=== PATIENT | female | born 1955 | race African-American/Black ===

== ENCOUNTER 2016-03-18 00:25 | Emergency (ER) | payer SELFPAY ==
[2016-03-18] MEDS ORDERED: METOCLOPRAMIDE HCL INJ/PF 10 MG/2 ML SDV IV ONE (01:43)
[2016-03-18] MEDS ORDERED: DIPHENHYDRAMINE HCL 50 MG/ML VIAL IV ONE (01:43)
[2016-03-18 02:12] LABS: ABSOLUTE BASOPHILS # (AUTO) 0.1 10^3/uL (0.0-0.2); ABSOLUTE EOSINOPHILS # (AUTO) 0.3 10^3/uL (0.0-0.6); ABSOLUTE MONOCYTES (AUTO) 0.5 10^3/uL (0.1-1.4); ABSOLUTE NEUT (AUTO) 3.1 10^3/uL (1.7-8.2); BASOPHILS % (AUTO) 0.9 % (0-2); EOSINOPHILS % (AUTO) 5.1 % (0-6); HEMATOCRIT 39.4 % (36.0-47.0); HEMOGLOBIN 13.4 g/dL (12.0-15.5); HGB HCT DIFFERENCE 0.8; LYMPHOCYTES % (AUTO) 34.1 % (13-45); MEAN CORPUSCULAR HEMOGLOBIN 31.9 pg (27.0-33.4); MEAN CORPUSCULAR HGB CONC 34.1 g/dL (32.0-36.0); MEAN CORPUSCULAR VOLUME 94 fl (80-97); MONOCYTES % (AUTO) 7.9 % (3-13); RED CELL DISTRIBUTION WIDTH 13.3 % (11.5-14.0)
[2016-03-18 02:31] LABS: ALANINE AMINOTRANSFERASE 14 U/L (9-52); ALBUMIN 3.5 g/dL (3.5-5.0); ALKALINE PHOSPHATASE 56 U/L (38-126); ANION GAP 7 (5-19); ASPARTATE AMINO TRANSFERASE 15 U/L (14-36); BILIRUBIN,TOTAL 0.4 mg/dL (0.2-1.3); BLOOD UREA NITROGEN 18 mg/dL (7-20); CALCIUM 8.9 mg/dL (8.4-10.2); CARBON DIOXIDE 32 mmol/L (22-30); CHLORIDE 101 mmol/L (98-107); CREATININE RESULT 0.99 mg/dL (0.52-1.25); GLUCOSE 100 mg/dL (75-110); POTASSIUM 4.1 mmol/L (3.6-5.0); SODIUM 140.2 mmol/L (137-145); TOTAL PROTEIN 6.4 g/dL (6.3-8.2)
[2016-03-18 02:58] LABS: ERYTHROCYTE SEDIMENTATION RATE 14 mm/hr (0-30)
[2016-03-18] MEDS ORDERED: KETOROLAC TROMETHAMINE INJ/PF 30 MG/1 ML SDV IV ONE (03:48)
--- NOTE | 2016-03-18 03:48 | ER Document Report ---
ED General - General Chief Complaint: Headache >24 hrs old Stated Complaint: HEADACHE, RIGHT EYE PAIN Time seen by provider: 03:46 Mode of Arrival: Ambulatory Information source: Patient Notes: This is a 60-year-old female with a history of hypertension that presents to the emergency room with a throbbing right-sided headache. Patient denies fever , chills, nausea vomiting. Patient denies weakness in the extremities. This is not the worst headache of her life. She denies any neck pain or ear pain. Patient does state she's been under stress lately. TRAVEL OUTSIDE OF THE [place] IN LAST 30 DAYS: No - HPI Onset: Yesterday Onset/Duration: Gradual Quality of pain: Achy Severity: Moderate Pain Level: 2 Associated symptoms: Headache. denies: Chills, Nonproductive cough, Productive cough, Fever, Nausea, Vomiting Exacerbated by: Denies Relieved by: Denies Similar symptoms previously: No Recently seen / treated by doctor: No - Related Data Allergies/Adverse Reactions: codeine [Codeine] Adverse Reaction (Verified 03/18/16 02:27) IODINE Allergy (Uncoded 03/18/16 02:27) Past Medical History - General Information source: Patient - Social History Smoking Status: Never Smoker Cigarette use (# per day): No Chew tobacco use (# tins/day): No Frequency of alcohol use: None Drug Abuse: None Lives with: Family Family History: Reviewed & Not Pertinent, Other - asthma Patient has suicidal ideation: No Patient has homicidal ideation: No - Past Medical History Cardiac Medical History: Reports: Hx Hypertension Pulmonary Medical History: Reports: Hx Pneumonia Past Surgical History: Reports: Hx Hysterectomy, Hx Oral Surgery - Immunizations Immunizations up to date: Yes Hx Diphtheria, Pertussis, Tetanus Vaccination: Yes Review of Systems - Review of Systems Constitutional: denies: Chills, Fever EENT: No symptoms reported Cardiovascular: No symptoms reported Respiratory: No symptoms reported Gastrointestinal: No symptoms reported Genitourinary: No symptoms reported Female Genitourinary: No symptoms reported Musculoskeletal: No symptoms reported Skin: No symptoms reported Hematologic/Lymphatic: No symptoms reported Neurological/Psychological: See HPI Physical Exam - Vital signs Vitals: Temp Pulse Resp BP Pulse Ox 98.2 F 69 18 137/86 H 100 03/18/16 00:33 03/18/16 00:33 03/18/16 00:33 03/18/16 00:33 03/18/16 00:33 Notes: Physical exam: GENERAL: HEAD: Atraumatic, normocephalic. EYES: Pupils equal round and reactive to light, extraocular movements intact, sclera anicteric, conjunctiva are normal. ENT: TMs normal, nares patent, oropharynx clear without exudates. Moist mucous membranes. NECK: Normal range of motion, supple without lymphadenopathy or JVD. LUNGS: Breath sounds clear to auscultation bilaterally and equal. No wheezes rales or rhonchi. HEART: Regular rate and rhythm without murmurs, rubs or gallops. ABDOMEN: Soft, nontender, normoactive bowel sounds. No guarding, no rebound. No masses appreciated. EXTREMITIES: Normal range of motion, no pitting or edema. No clubbing or cyanosis. NEUROLOGICAL: Cranial nerves II through XII grossly intact. Motor 5 over 5, sensory grossly intact, cerebellar grossly intact, reflexes symmetrical. Patient's neck is supple, there is no photophobia, no neck rigidity, negative Brudzinski's. PSYCH: Normal mood, normal affect. SKIN: Warm, Dry, normal turgor, no rashes or lesions noted. Course - Vital Signs Vital signs: Temp Pulse Resp BP Pulse Ox 98.2 F 69 18 137/86 H 100 03/18/16 00:33 03/18/16 00:33 03/18/16 00:33 03/18/16 00:33 03/18/16 00:33 - Laboratory Result Diagrams: 03/18/16 02:00 03/18/16 02:00 Laboratory results interpreted by me: 03/18/16 02:00 Carbon Dioxide 32 H Est GFR (Non-Af Amer) 57 L - Diagnostic Test Radiology reviewed: Image reviewed, Reports reviewed - CT of the head shows no lesions or bleed. Discharge - Discharge Clinical Impression: headache Condition: Stable Disposition: HOME, SELF-CARE Instructions: Headache ([facility]) Additional Instructions: Recommendations: Rest, continue your blood pressure medicine. Take Reglan for any nausea or headache. He can take ibuprofen as well. For any headache not relieved with the Reglan or ibuprofen: Take Percocet as prescribed. Return to the emergency room for worsening headache, fever (temperature greater than 100.5), neck stiffness or any concerns he getting worse. Otherwise, follow-up with your doctors at [facility]. Prescriptions: Metoclopramide HCl [Reglan 10 mg Tablet] 1 - 2 tab PO ASDIR PRN #25 tablet PRN Reason: Oxycodone HCl/Acetaminophen [Percocet 5-325 mg Tablet] 1 - 2 tab PO ASDIR PRN # 25 tablet PRN Reason:
[2016-03-18 05:49] VITALS: BP 126/87
== END 2016-03-18 05:51 | disposition home or self-care (01) ==
LOC: ER 00:25
DX: R51 Headache (principal); I10 Essential (primary) hypertension
CPT/HCPCS: 96376; 99284; 96374; 96375; 36415; 85025; 85652; 80053; 70450; J1200; J1885; J2765

== ENCOUNTER 2018-04-10 04:06 | Emergency (ER) | payer SELFPAY ==
[2018-04-10] MEDS ORDERED: IPRATROPIUM/ALBUTEROL 0.5-2.5 MG/3 ML AMPUL NEB ONE ×3 (05:51→08:22)
--- NOTE | 2018-04-10 05:54 | ER Document Report ---
ED Medical Screen (RME) - General Chief Complaint: Cold Symptoms Stated Complaint: TROUBLE BREATHING Time Seen by Provider: 04/10/18 05:41 Mode of Arrival: Ambulatory Information source: Patient Notes: Patient is a 62-year-old female who presents the emergency department with chief complaint of cough, nasal congestion and low-grade fevers that started on Thursday. Patient reports she has an albuterol inhaler at home however she reports that it has not helped. When patient asked if she has any body aches patient reports that she has a "shimmer that goes through my whole body". She denies any chest pain, nausea, vomiting, diarrhea. She did not get a flu shot this year. Exam: Expiratory wheezes noted bilaterally. I have greeted and performed a rapid initial assessment of this patient. A comprehensive ED assessment and evaluation of the patient, analysis of test results and completion of the medical decision making process will be conducted by additional ED providers. Dictation of this chart was performed using voice recognition software; therefore, there may be some unintended grammatical errors. TRAVEL OUTSIDE OF THE [place] IN LAST 30 DAYS: No - Related Data Allergies/Adverse Reactions: codeine [Codeine] Adverse Reaction (Verified 03/18/16 02:27) IODINE Allergy (Uncoded 03/18/16 02:27) Past Medical History - Past Medical History Cardiac Medical History: Reports: Hx Hypertension Pulmonary Medical History: Reports: Hx Pneumonia Past Surgical History: Reports: Hx Hysterectomy, Hx Oral Surgery - Immunizations Immunizations up to date: Yes Hx Diphtheria, Pertussis, Tetanus Vaccination: Yes Physical Exam - Vital signs Vitals: Temp Pulse Resp BP Pulse Ox 100.1 F 95 16 151/97 H 99 04/10/18 04:08 04/10/18 04:08 04/10/18 04:08 04/10/18 04:08 04/10/18 04:08 Course - Vital Signs Vital signs: Temp Pulse Resp BP Pulse Ox 100.1 F 95 16 151/97 H 99 04/10/18 04:08 04/10/18 04:08 04/10/18 04:08 04/10/18 04:08 04/10/18 04:08
--- NOTE | 2018-04-10 06:39 | RADIOLOGY REPORT (SQ) ---
CLINICAL HISTORY: cough, fever, sob COMPARISON: None. 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 Lungs are clear without consolidation, atelectasis, mass or edema. There is no pleural effusion. There is no pneumothorax. There are no acute osseous findings. IMPRESSION: Clear lungs.
--- NOTE | 2018-04-10 07:13 | ER Document Report ---
HPI - HPI Patient complains to provider of: breathing problem and congestion Time Seen by Provider: 04/10/18 05:41 Pain Level: 2 Context: Patient is a 62-year-old female who presents the emergency department with chief complaint of cough, nasal congestion and low-grade fevers that started on Thursday. Patient reports she has an albuterol inhaler at home however she reports that it has not helped. Patient states she is also having coughing fits and afterwards has a "chill or a shiver that goes through my body in my stomach". She denies any headache, dizziness, lightheadedness, sore throat, complains of chest wall pain when coughing, nausea, vomiting, diarrhea. She did not get a flu shot this year. - RESPIRATORY Respiratory: REPORTS: Trouble Breathing, Coughing - REPRODUCTIVE Reproductive: DENIES: : Past Medical History - General Information source: Patient - Social History Smoking Status: Unknown if Ever Smoked Family History: Reviewed & Not Pertinent, Other - asthma Patient has suicidal ideation: No Patient has homicidal ideation: No - Past Medical History Cardiac Medical History: Reports: Hx Hypertension Pulmonary Medical History: Reports: Hx Pneumonia Renal/ Medical History: Denies: Hx Peritoneal Dialysis Past Surgical History: Reports: Hx Hysterectomy, Hx Oral Surgery - Immunizations Immunizations up to date: Yes Hx Diphtheria, Pertussis, Tetanus Vaccination: Yes Vertical Provider Document - CONSTITUTIONAL Notes: PHYSICAL EXAMINATION: Reviewed vital signs and charting by RN GENERAL: Alert, interacts well. No acute distress. HEAD: Normocephalic, atraumatic. EYES: Pupils equal, round. Extraocular movements intact. ENT: Oral mucosa moist, tongue midline, no tonsillar hypertrophy or tonsillar ex udate. No soft palate petechiae. NECK: Full range of motion. Supple. Trachea midline. LUNGS: Diffuse inspiratory and expiratory wheezing, no respiratory distress. HEART: Regular rate and rhythm. No murmur ABDOMEN: soft, non-tender. Non-distended. Bowel sounds present in all 4 quadrants. EXTREMITIES: Moves all 4 extremities spontaneously. No edema, No cyanosis. PSYCH: Normal affect, normal mood. SKIN: Warm, dry, normal turgor. No rashes or lesions noted. - INFECTION CONTROL TRAVEL OUTSIDE OF THE [place] IN LAST 30 DAYS: No Course - Re-evaluation Re-evalutation: 04/10/18 07:25 Overall well-appearing 62-year-old female sleeping in the bed presents for cough and congestion. Triaged by Nona Steward. Patient had received 1 DuoNeb after reports of expiratory wheezing. She states she feels better and upon my physical exam she has inspiratory and expiratory wheezing in all hernandez. Plan is to give her at least 1 more DuoNeb and assess for response. 04/10/18 08:22 Reassessed patient after second DuoNeb treatment patient still with impressive expiratory wheezing in all hernandez. Patient subjectively feels much better and is able to move air. I suggested to her she would benefit from 1 more treatment and she agreed. Will reassess after third treatment. 04/10/18 09:18 Third breathing treatment complete. Reassessed patient breath sounds much to improve, still has some end expiratory wheezing. Patient states he feels much, much better. Plan is to discharge her with an albuterol inhaler and spacer. She was given directions on how to use inhaler with spacer. Return precautions given. - Vital Signs Vital signs: Temp Pulse Resp BP Pulse Ox 100.1 F 95 16 151/97 H 99 04/10/18 04:08 04/10/18 04:08 04/10/18 04:08 04/10/18 04:08 04/10/18 04:08 Discharge - Discharge Clinical Impression: Wheezing on both sides of chest, Shortness of breath Condition: Good Disposition: HOME, SELF-CARE Additional Instructions: You were seen in the emergency department this morning for shortness of breath and wheezing. You were given 3 breathing treatments which greatly improved her symptoms. I have prescribed you an albuterol inhaler with AeroChamber. Please use the spacer every time you use your inhaler. Please use your albuterol inhaler every 4 hours the next 48 hours. Take 2 puffs with your spacer. If you develop acute shortness of breath, develop worsening symptoms, your lips or fingernails start to turn blue, or you become acutely distressed please immediately return to the emergency department. Prescriptions: Albuterol Sulfate [Proair HFA Inhalation Aerosol 8.5 gm MDI] 200 puff IH PRN PRN #1 [email or web address] PRN Reason:
[2018-04-10] MEDS ORDERED: ALBUTEROL SULFATE HFA (90 MCG/PUFF) 8 GM MDI (1 MDI/ER DISP) IH ONE (09:14)
[2018-04-10 09:30] VITALS: BP 135/78
== END 2018-04-10 09:35 | disposition home or self-care (01) ==
LOC: ER 04:06
DX: R06.2 Wheezing (principal); R06.02 Shortness of breath; R05 Cough; R09.81 Nasal congestion; R50.9 Fever, unspecified; R07.89 Other chest pain; R11.2 Nausea with vomiting, unspecified; R19.7 Diarrhea, unspecified; Z87.01 Personal history of pneumonia (recurrent); Z82.5 Family history of asthma and other chronic lower respiratory diseases
CPT/HCPCS: 94640 ×2; 99283; 71046; J3490; J7620

== ENCOUNTER 2018-06-28 04:48 | Emergency (ER) | payer SELFPAY ==
[2018-06-28] MEDS ORDERED: ACETAMINOPHEN 325 MG TABLET PO ONE (04:57)
--- NOTE | 2018-06-28 06:15 | RADIOLOGY REPORT (SQ) ---
EXAM DESCRIPTION: XR WRIST 1-2 VIEWS COMPLETED DATE/TME: 06/28/2018 00:00 CLINICAL HISTORY: 62 years, Female, fell and landed on it COMPARISON: None. NUMBER OF VIEWS: 2 TECHNIQUE: 2 views right wrist LIMITATIONS: None. FINDINGS: Osteopenia. Degenerative changes of the hand and wrist. Negative for acute fracture or dislocation IMPRESSION: Osteopenia with degenerative change copyright 2010 [employer]- All Rights Reserved
--- NOTE | 2018-06-28 06:15 | RADIOLOGY REPORT (SQ) ---
EXAM DESCRIPTION: XR HAND 1-2 VIEWS COMPLETED DATE/TME: 06/28/2018 00:00 CLINICAL HISTORY: 62 years, Female, fell and landed on it COMPARISON: None. NUMBER OF VIEWS: 2 TECHNIQUE: 2 view right hand LIMITATIONS: None. FINDINGS: Osteopenia. Negative for acute fracture or dislocation. Degenerative changes of the hand and wrist. Soft tissues are unremarkable IMPRESSION: Osteopenia with degenerative change copyright 2010 [employer]- All Rights Reserved
[2018-06-28] MEDS ORDERED: IBUPROFEN 800 MG TABLET PO ONE (08:15)
--- NOTE | 2018-06-28 08:16 | ER Document Report ---
HPI - HPI Time Seen by Provider: 06/28/18 08:09 Onset: This morning Quality of pain: Achy Severity: Severe Pain Level: 5 Context: Patient presents emergency department with complaints of right dorsal hand pain. Denies wrist and arm pain. Patient reports she got up in the middle of night to go the bathroom and fell on her hand. She denies dizziness. Reports she just got off balance and fell. Denies other symptoms such as fever vomiting diarrhea At this time. Patient is right-hand dominant. Has full range of motion to her right hand but complains of pain with movement. No obvious d eformity noted. Associated Symptoms: None Exacerbated by: Movement Relieved by: Denies Similar symptoms previously: No Recently seen / treated by doctor: No - REPRODUCTIVE Reproductive: DENIES: : Past Medical History - General Information source: Patient - Social History Smoking Status: Never Smoker Chew tobacco use (# tins/day): No Frequency of alcohol use: Occasional Drug Abuse: None Family History: Reviewed & Not Pertinent, Other - asthma Patient has suicidal ideation: No Patient has homicidal ideation: No - Past Medical History Cardiac Medical History: Reports: Hx Hypertension Pulmonary Medical History: Reports: Hx Pneumonia Renal/ Medical History: Denies: Hx Peritoneal Dialysis Past Surgical History: Reports: Hx Hysterectomy, Hx Oral Surgery - Immunizations Immunizations up to date: Yes Hx Diphtheria, Pertussis, Tetanus Vaccination: Yes Vertical Provider Document - CONSTITUTIONAL Agree With Documented VS: Yes Exam Limitations: No Limitations General Appearance: WD/WN, No Apparent Distress - wincing when hand palpated - INFECTION CONTROL TRAVEL OUTSIDE OF THE [place] IN LAST 30 DAYS: No - HEENT HEENT: Atraumatic - NECK Neck: Supple - RESPIRATORY Respiratory: No Respiratory Distress - CARDIOVASCULAR Cardiovascular: Regular Rate - MUSCULOSKELETAL/EXTREMETIES Musculoskeletal/Extremeties: MAEW, FROM, Tender - dorsal hand ttp obvious swelling no obvious deformity no erythema warmth good cap refill good radial pulse no snuffbox tenderness - NEURO Level of Consciousness: Awake, Alert, Appropriate Motor/Sensory: No Motor Deficit - DERM Integumentary: Warm, Dry Adult Front & Back Diagram: 1 - reports tenderness to palpation Course - Re-evaluation Re-evalutation: 06/28/18 08:23 Patient was instructed on negative wrist x-ray negative hand x-ray. Instructed on Isaac wrap Motrin for the pain. Instructed to follow-up with her provider Dr. Mcdaniel for recheck. Also instructed to return the ED if she continues to have pain. No snuffbox pain noted. Dictation of this chart was performed using voice recognition software; therefore, there may be some unintended grammatical errors. - Vital Signs Vital signs: Temp Pulse Resp BP Pulse Ox 98.7 F 76 16 153/85 H 96 06/28/18 08:06 06/28/18 08:06 06/28/18 08:06 06/28/18 08:06 06/28/18 08:06 - Diagnostic Test Radiology reviewed: Image reviewed, Reports reviewed - EXAM DESCRIPTION: XR WRIST 1-2 VIEWS COMPLETED DATE/TME: 06/28/2018 00:00 CLINICAL HISTORY: 62 years, Female, fell and landed on it COMPARISON: None. NUMBER OF VIEWS: 2 TECHNIQUE: 2 views right wrist LIMITATIONS: None. FINDINGS: Osteopenia. Degenerative changes of the hand and wrist. Negative for acute fracture or dislocation IMPRESSION: Osteopenia with degenerative change Final Report EXAM DESCRIPTION: XR HAND 1-2 VIEWS COMPLETED DATE/TME: 06/28/2018 00:00 CLINICAL HISTORY: 62 years, Female, fell and landed on it COMPARISON: None. NUMBER OF VIEWS: 2 TECHNIQUE: 2 view right hand LIMITATIONS: None. FINDINGS: Osteopenia. Negative for acute fracture or dislocation. Degenerative changes of the hand and wrist. Soft tissues are unremarkable IMPRESSION: Osteopenia with degenerative change Procedures - Immobilization Right Hand Pre-Proc Neuro Vasc Exam: Normal Immobilizer type: Isaac wrap Performed by: BRIAN weber Post-Proc Neuro Vasc Exam: Unchanged from pre-exam Alignment checked and good: Yes Discharge - Discharge Clinical Impression: Injury of right hand Qualifiers: Encounter type: initial encounter Qualified Code(s): S69.91XA - Unspecified injury of right wrist, hand and finger(s), initial encounter Condition: Stable Disposition: HOME, SELF-CARE Instructions: Acetaminophen, Isaac Wrap ([facility]), Ice & Elevation ([facility]) Additional Instructions: *You have been evaluated for right hand injury *Maintain the isaac wrap for comfort for three days *Rest/Ice/Elevate the right *Follow up with orthopedics for continued pain-call for an appointment *Take ibuprofen as indicated for pain *Return to ED for worsening condition, changes, needs, concerns Monitor your blood pressure. Your blood pressure was elevated today. This may be because you were anxious, in pain or because you need medication. It is important to follow up with your primary care provider for full evaluation. Forms: Elevated Blood Pressure
[2018-06-28 08:24] VITALS: BP 125/78
== END 2018-06-28 08:26 | disposition home or self-care (01) ==
LOC: ER 04:48
DX: S69.91XA Unspecified injury of right wrist, hand and finger(s), initial encounter (principal); M79.641 Pain in right hand; M79.89 Other specified soft tissue disorders; W19.XXXA Unspecified fall, initial encounter; Y93.89 Activity, other specified; M85.831 Other specified disorders of bone density and structure, right forearm; M85.841 Other specified disorders of bone density and structure, right hand; I10 Essential (primary) hypertension
CPT/HCPCS: 99283

== ENCOUNTER 2018-08-16 11:45 | Emergency (ER) | payer SELFPAY ==
--- NOTE | 2018-08-16 12:05 | ER Document Report ---
ED Medical Screen (RME) - General Chief Complaint: Flank Pain Stated Complaint: LEFT FLANK PAIN Time Seen by Provider: 08/16/18 11:58 Primary Care Provider: ZENY ONTIVEROS MD [Primary Care Provider] - Follow up as needed TRAVEL OUTSIDE OF THE [place] IN LAST 30 DAYS: No - HPI Notes: 08/16/18 12:03 Patient is a 62-year-old female with a history of hypertension who presents co mplaining of left side pain and occasional pain to her abdomen over the past week. Patient states that she does have some diarrhea without any nausea or vomiting. Patient states that she also has pain to her left back that will radiate down into her buttock and leg at times, but is different than the pain that she is describing from her left side. Denies MARI, fever, neck pain, URI, CP, SOB, dysuria, or rash. Patient will need to be in a bed to further evaluate the abdomen for any signs of tenderness so we will start with basic work-up at this time. I have treated and performed a rapid initial assessment of this patient. A comprehensive ED assessment and evaluation of the patient, analysis of test results and completion of medical decision making process will be conducted by additional ED providers. PHYSICAL EXAMINATION: GENERAL: Well-appearing, well-nourished and in no acute distress. A&Ox4. Answers questions appropriately. LUNGS: Breath sounds clear to auscultation bilaterally and equal. No wheezes rales or rhonchi. HEART: Regular rate and rhythm without murmurs, rubs, gallops. - Related Data Allergies/Adverse Reactions: codeine [Codeine] Adverse Reaction (Verified 08/16/18 11:45) IODINE Allergy (Uncoded 08/16/18 11:45) Past Medical History - Past Medical History Cardiac Medical History: Reports: Hx Hypertension Pulmonary Medical History: Reports: Hx Pneumonia Renal/ Medical History: Denies: Hx Peritoneal Dialysis Past Surgical History: Reports: Hx Hysterectomy, Hx Oral Surgery - Immunizations Immunizations up to date: Yes Hx Diphtheria, Pertussis, Tetanus Vaccination: Yes Physical Exam - Vital signs Vitals: Temp Pulse Resp BP Pulse Ox 98 F 69 18 144/86 H 97 08/16/18 11:50 08/16/18 11:50 08/16/18 11:50 08/16/18 11:50 08/16/18 11:50 Course - Vital Signs Vital signs: Temp Pulse Resp BP Pulse Ox 98 F 69 18 144/86 H 97 08/16/18 11:50 08/16/18 11:50 08/16/18 11:50 08/16/18 11:50 08/16/18 11:50 Doctor's Discharge - Discharge Referrals: ZENY ONTIVEROS MD [Primary Care Provider] - Follow up as needed
[2018-08-16 13:06] LABS: ABSOLUTE BASOPHILS # (AUTO) 0.1 10^3/uL (0.0-0.2); ABSOLUTE EOSINOPHILS # (AUTO) 0.3 10^3/uL (0.0-0.6); ABSOLUTE LYMPHOCYTES (AUTO) 1.3 10^3/uL (0.5-4.7); ABSOLUTE MONOCYTES (AUTO) 0.4 10^3/uL (0.1-1.4); ABSOLUTE NEUT (AUTO) 3.1 10^3/uL (1.7-8.2); EOSINOPHILS % (AUTO) 6.3 % (0-6); HEMATOCRIT 43.5 % (36.0-47.0); HEMOGLOBIN 14.7 g/dL (12.0-15.5); LYMPHOCYTES % (AUTO) 24.9 % (13-45); MEAN CORPUSCULAR HEMOGLOBIN 34.3 pg (27.0-33.4); MEAN CORPUSCULAR HGB CONC 33.9 g/dL (32.0-36.0); MEAN CORPUSCULAR VOLUME 101 fl (80-97); MONOCYTES % (AUTO) 8.2 % (3-13); PLATELET COUNT 245 10^3/uL (150-450); RED BLOOD COUNT 4.29 10^6/uL (3.72-5.28); SEGMENTED NEUTROPHILS % (AUTO) 59.6 % (42-78); TOTAL CELLS COUNTED % (AUTO) 100 %; WHITE BLOOD COUNT 5.2 10^3/uL (4.0-10.5)
[2018-08-16 13:25] LABS: ALANINE AMINOTRANSFERASE 24 U/L (9-52); ALBUMIN 4.1 g/dL (3.5-5.0); ALKALINE PHOSPHATASE 57 U/L (38-126); ANION GAP 10 (5-19); ASPARTATE AMINO TRANSFERASE 25 U/L (14-36); BILIRUBIN,DIRECT 0.2 mg/dL (0.0-0.4); BILIRUBIN,TOTAL 0.6 mg/dL (0.2-1.3); BLOOD UREA NITROGEN 16 mg/dL (7-20); CALCIUM 9.4 mg/dL (8.4-10.2); CARBON DIOXIDE 31 mmol/L (22-30); CHLORIDE 102 mmol/L (98-107); GLUCOSE 96 mg/dL (75-110); LIPASE 79.1 U/L (23-300); POTASSIUM 3.7 mmol/L (3.6-5.0); SODIUM 142.6 mmol/L (137-145); TOTAL PROTEIN 7.2 g/dL (6.3-8.2)
[2018-08-16] MEDS ORDERED: PREDNISONE 20 MG TABLET PO ONE (15:11)
[2018-08-16] MEDS ORDERED: HYDROCODONE/ACETAMINOPHEN 5-325 MG TABLET PO ONE (15:11)
--- NOTE | 2018-08-16 15:19 | ER Document Report ---
ED General Pain - General Chief Complaint: Flank Pain Stated Complaint: LEFT FLANK PAIN Time Seen by Provider: 08/16/18 11:58 Primary Care Provider: ZENY ONTIVEROS MD [Primary Care Provider] - Follow up as needed Information source: Patient Notes: Patient is a 62-year-old female who presents today with the onset around 5 days ago of some left lower back/hip pain radiating down the lateral aspect of her left leg. She states it is worse when she moves or lays on the left side. No fevers, incontinence, or weakness of the leg. No pain to the left leg or calf swelling. No recent trauma. No dysuria or flank pain. She denies any and all abdominal pain. TRAVEL OUTSIDE OF THE [place] IN LAST 30 DAYS: No - Related Data Allergies/Adverse Reactions: codeine [Codeine] Adverse Reaction (Verified 08/16/18 11:45) IODINE Allergy (Uncoded 08/16/18 11:45) Past Medical History - Social History Smoking Status: Current Every Day Smoker Chew tobacco use (# tins/day): No Family History: Reviewed & Not Pertinent, Other - asthma Patient has suicidal ideation: No Patient has homicidal ideation: No - Past Medical History Cardiac Medical History: Reports: Hx Hypertension Pulmonary Medical History: Reports: Hx Pneumonia Renal/ Medical History: Denies: Hx Peritoneal Dialysis Past Surgical History: Reports: Hx Hysterectomy, Hx Oral Surgery - Immunizations Immunizations up to date: Yes Hx Diphtheria, Pertussis, Tetanus Vaccination: Yes Review of Systems - Review of Systems Constitutional: denies: Fever EENT: denies: Eye discharge, Nose discharge Cardiovascular: denies: Chest pain, Palpitations Respiratory: denies: Short of breath Gastrointestinal: denies: Vomiting Genitourinary: denies: Dysuria Musculoskeletal: denies: Leg swelling Skin: Other - no hives. denies: Rash Neurological/Psychological: Other - no slurred speech -: Yes All other systems reviewed and negative Physical Exam - Vital signs Vitals: Temp Pulse Resp BP Pulse Ox 98 F 69 18 144/86 H 97 08/16/18 11:50 08/16/18 11:50 08/16/18 11:50 08/16/18 11:50 08/16/18 11:50 Notes: Reviewed vital signs and nursing note as charted by RN. CONSTITUTIONAL: Alert and oriented and responds appropriately to questions. Well-appearing; well-nourished HEAD: Normocephalic; atraumatic CARD: Regular rate and rhythm; no murmurs; symmetric distal pulses RESP: Normal chest excursion without splinting or tachypnea; breath sounds clear and equal bilaterally; no wheezes, no rhonchi, no rales ABD/GI: Normal bowel sounds; non-distended; soft, non-tender to deep palpation of all 4 quadrants of the abdomen; no abdominal bruit; no palpable organomegaly or masses BACK: The back appears normal and is non-tender to palpation along the entire midline spine with no swelling, erythema, or step-offs. Patient has some left lower buttocks posterior hip pain without any swelling or erythema EXT: Normal ROM in all joints; non-tender to palpation; no edema; 2+ patellar reflexes; excellent distal leg strength and color SKIN: No acute lesions noted NEURO: CN 2-12 intact; 5/5 bilateral upper and lower extremity strength with sensation intact to light touch PSYCH: The patient's mood and manner are appropriate. Grooming and personal hygiene are appropriate. Course - Re-evaluation Re-evalutation: 08/16/18 15:19 Given the history and physical examination, I will order an x-ray of the left hip. I do believe this is most likely musculoskeletal and/or sciatica related. No weakness or signs or symptoms of a DVT. No incontinence, or fevers. I do believe acute cord compression, discitis, or epidural abscess to be unlikely. Labs were ordered in triage. Glucose as recorded. I will obtain an x-ray of the left hip and start the patient on prednisone and pain medications. I will provide expedited orthopedic follow-up. 08/16/18 15:50 Labs as recorded. Normal white count. X-ray of the hip and pelvis on my preliminary interpretation shows no pathology. No change in exam. Still no abdominal tenderness. Normal glucose. Patient will be discharged home with pain medications, a 5-day course of prednisone, strict return precautions and follow-up with orthopedics. - Vital Signs Vital signs: Temp Pulse Resp BP Pulse Ox 98 F 69 18 144/86 H 97 08/16/18 11:50 08/16/18 11:50 08/16/18 11:50 08/16/18 11:50 08/16/18 11:50 - Laboratory Result Diagrams: 08/16/18 12:50 08/16/18 12:50 Laboratory results interpreted by me: 08/16/18 08/16/18 08/16/18 12:50 12:50 12:50 MCV 101 H MCH 34.3 H Eosinophils % 6.3 H Carbon Dioxide 31 H Est GFR (Non-Af Amer) 58 L Urine Blood SMALL H Urine Nitrite POSITIVE H Ur Leukocyte Esterase SMALL H Discharge - Discharge Clinical Impression: Sciatica of left side Left-sided back pain Qualifiers: Back pain location: low back pain Chronicity: acute Sciatica presence: with sciatica Sciatica laterality: sciatica of left side Qualified Code(s): M54.42 - Lumbago with sciatica, left side Condition: Good Disposition: HOME, SELF-CARE Additional Instructions: Come back immediately for any increased pain, change in location or quality of pain, fevers, weakness or numbness, incontinence, swelling of the leg, or any other acute problems. Please take the 5-day course of steroids as prescribed, pain medications as needed, and please follow-up with orthopedics as discussed. Prescriptions: Hydrocodone/Acetaminophen [Vashon 5-325 mg Tablet] 1 tab PO Q6H PRN 3 Days #12 tablet PRN Reason: Prednisone [Deltasone 20 mg Tablet] 3 tab PO DAILY 5 Days #15 tablet Referrals: ZENY ONTIVEROS MD [Primary Care Provider] - Follow up as needed LINA VEGAS DO [ACTIVE STAFF] - Follow up as needed
[2018-08-16 15:34] LABS: APPEARANCE,URINE CLOUDY; BILIRUBIN,URINE NEGATIVE (NEGATIVE); COLOR,URINE YELLOW; GLUCOSE, URINE NEGATIVE (NEGATIVE); KETONES,URINE NEGATIVE (NEGATIVE); LEUKOCYTE ESTERASE,URINE SMALL (NEGATIVE); NITRITE,URINE POSITIVE (NEGATIVE); PROTEIN,URINE NEGATIVE (NEGATIVE); URINE SPECIFIC GRAVITY 1.018; UROBILINOGEN,URINE NEGATIVE mg/dL (<2.0)
[2018-08-16] MEDS ORDERED: CEFTRIAXONE RTU 1 GM/D5W 50 ML IV ONE (15:53)
[2018-08-16] MEDS ORDERED: CEPHALEXIN 500 MG CAPSULE PO ONE (15:56)
--- NOTE | 2018-08-16 15:58 | RADIOLOGY REPORT (SQ) ---
EXAM DESCRIPTION: HIP LEFT AP/LATERAL COMPLETED DATE/TIME: 08/16/2018 3:41 pm REASON FOR STUDY: 19; left hip pain radiating to left lower leg COMPARISON: None. NUMBER OF VIEWS: Two views. TECHNIQUE: AP pelvis and additional frog-leg view of the left hip. LIMITATIONS: None. FINDINGS: MINERALIZATION: Normal. LEFT HIP: Chronic degenerative changes. No fracture or dislocation. No worrisome bone lesions. RIGHT HIP: Chronic degenerative changes. No fracture or dislocation. No worrisome bone lesions. PUBIS AND ISCHIUM: No fracture. PELVIS: No fracture. SACRUM: No fracture or dislocation. No worrisome bone lesions. LOWER LUMBAR SPINE: No fracture or dislocation. No worrisome bone lesions. Degenerative disc disease . SOFT TISSUES: No findings. OTHER: No other significant finding. IMPRESSION: CHRONIC DEGENERATIVE CHANGES. NO ACUTE FINDINGS. TECHNICAL DOCUMENTATION: JOB ID: [id number] [employer]- All Rights Reserved Reading location - IP/workstation name: [email or web address]
--- NOTE | 2018-08-16 16:50 | RADIOLOGY REPORT (SQ) ---
EXAM DESCRIPTION: CT ABD/PELVIS NO ORAL OR IV COMPLETED DATE/TIME: 08/16/2018 4:18 pm REASON FOR STUDY: 19; left back pain COMPARISON: None. TECHNIQUE: CT scan of the abdomen and pelvis performed without intravenous or oral contrast. Images reviewed with lung, soft tissue, and bone windows. Reconstructed coronal and sagittal MPR images revi ewed. All images stored on PACS. All CT scanners at this facility use dose modulation, iterative reconstruction, and/or weight based d osing when appropriate to reduce radiation dose to as low as reasonably achievable (ALARA). [facility]: Dose Right [facility]: CareDose [facility]: Dose Right [facility]: Teradose 4D [facility]: Smart InterValve RADIATION DOSE: CT Rad equipment meets quality standard of care and radiation dose reduction techniq ues were employed. CTDIvol: 16.0 mGy. DLP: 864 mGy-cm.mGy. LIMITATIONS: None. FINDINGS: LOWER CHEST: No significant findings. No nodules or infiltrates. NON-CONTRASTED LIVER, SPLEEN, ADRENALS: Evaluation limited by lack of IV contrast. No identified sign ificant masses. PANCREAS: No masses. No peripancreatic inflammatory changes. GALLBLADDER: Gallstones. No inflammatory changes to suggest cholecystitis. RIGHT KIDNEY AND URETER: No suspicious masses. Assessment limited by lack of IV contrast. No signif icant calcifications. No hydronephrosis or hydroureter. LEFT KIDNEY AND URETER: No suspicious masses. Assessment limited by lack of IV contrast. No signifi cant calcifications. No hydronephrosis or hydroureter. AORTA AND RETROPERITONEUM: No aneurysm. No retroperitoneal masses or adenopathy. BOWEL AND PERITONEAL CAVITY: Diverticulosis without evidence of diverticulitis. APPENDIX: Normal. PELVIS, BLADDER, AND ABDOMINAL WALL:No abnormal masses. No free fluid. Bladder normal. BONES: No significant findings. OTHER: No other significant finding. IMPRESSION: 1. Diverticulosis without evidence of diverticulitis. 2. Cholelithiasis. COMMENT: Quality ID # [id number]: Final reports with documentation of one or more dose reduction techniques (e.g., Automated exposure control, adjustment of the mA and/or kV according to patient size, use of iterative reconstruction technique) TECHNICAL DOCUMENTATION: JOB ID: [id number] [employer]- All Rights Reserved Reading location - IP/workstation name: [email or web address]
[2018-08-16 18:21] VITALS: BP 136/77
== END 2018-08-16 18:21 | disposition home or self-care (01) ==
LOC: ER 11:45
DX: M54.42 Lumbago with sciatica, left side (principal); R10.9 Unspecified abdominal pain; M25.552 Pain in left hip; M79.605 Pain in left leg; F17.200 Nicotine dependence, unspecified, uncomplicated; I10 Essential (primary) hypertension
CPT/HCPCS: 99284; 36415; 87086; 83690; 85025; 87088; 80053; 81001; 87186; 73502; 74176; J7512

== ENCOUNTER 2019-03-16 10:31 | Emergency (ER) | payer MEDICARE ==
--- NOTE | 2019-03-16 11:05 | ER Document Report ---
ED Medical Screen (RME) - General Chief Complaint: Dizziness Stated Complaint: DIZZINESS Time Seen by Provider: 03/16/19 11:00 Primary Care Provider: ZENY ONTIVEROS MD [Primary Care Provider] - Follow up as needed Mode of Arrival: Ambulatory Information source: Patient Notes: 63-year-old female with history of high blood pressure but has not been taking her medications for several months presents today with complaints of dizziness on and off since Thursday. She reports the dizziness comes and goes. Denies fever nausea vomiting with the symptoms. Denies chest pain shortness of breath. Patient has had a lot of stress in her life recently. She reports weight loss of possibly 100 pounds in the last couple months. I have greeted and performed a rapid initial assessment of this patient. A comprehensive ED assessment and evaluation of the patient, analysis of test results and completion of the medical decision making process will be conducted by additional ED providers. TRAVEL OUTSIDE OF THE [place] IN LAST 30 DAYS: No - Related Data Allergies/Adverse Reactions: codeine [Codeine] Adverse Reaction (Verified 03/16/19 10:58) IODINE Allergy (Uncoded 03/16/19 10:58) Past Medical History - Past Medical History Cardiac Medical History: Reports: Hx Hypertension Pulmonary Medical History: Reports: Hx Pneumonia Renal/ Medical History: Denies: Hx Peritoneal Dialysis Past Surgical History: Reports: Hx Hysterectomy, Hx Oral Surgery - Immunizations Immunizations up to date: Yes Hx Diphtheria, Pertussis, Tetanus Vaccination: Yes Physical Exam - Vital signs Vitals: Temp Pulse Resp BP Pulse Ox 99.4 F 78 20 171/94 H 99 03/16/19 10:50 03/16/19 10:50 03/16/19 10:50 03/16/19 10:50 03/16/19 10:50 Course - Vital Signs Vital signs: Temp Pulse Resp BP Pulse Ox 99.4 F 78 20 171/94 H 99 03/16/19 10:50 03/16/19 10:50 03/16/19 10:50 03/16/19 10:50 03/16/19 10:50 Doctor's Discharge - Discharge Referrals: ZENY ONTIVEROS MD [Primary Care Provider] - Follow up as needed
--- NOTE | 2019-03-16 11:19 | EKG REPORT ---
SEVERITY:- NORMAL ECG - SINUS RHYTHM : Confirmed by: Smita Dixon 16-Mar-2019 11:18:35
[2019-03-16 11:48] LABS: ABSOLUTE BASOPHILS # (AUTO) 0.1 10^3/uL (0.0-0.2); ABSOLUTE EOSINOPHILS # (AUTO) 0.3 10^3/uL (0.0-0.6); ABSOLUTE LYMPHOCYTES (AUTO) 1.1 10^3/uL (0.5-4.7); ABSOLUTE MONOCYTES (AUTO) 0.4 10^3/uL (0.1-1.4); ABSOLUTE NEUT (AUTO) 2.6 10^3/uL (1.7-8.2); BASOPHILS % (AUTO) 1.3 % (0-2); EOSINOPHILS % (AUTO) 7.1 % (0-6); HEMATOCRIT 45.2 % (36.0-47.0); HEMOGLOBIN 15.2 g/dL (12.0-15.5); LYMPHOCYTES % (AUTO) 23.9 % (13-45); MEAN CORPUSCULAR HEMOGLOBIN 35.3 pg (27.0-33.4); MEAN CORPUSCULAR HGB CONC 33.7 g/dL (32.0-36.0); MEAN CORPUSCULAR VOLUME 105 fl (80-97); MONOCYTES % (AUTO) 9.6 % (3-13); PLATELET COUNT 215 10^3/uL (150-450); RED BLOOD COUNT 4.31 10^6/uL (3.72-5.28); RED CELL DISTRIBUTION WIDTH 13.3 % (11.5-14.0); SEGMENTED NEUTROPHILS % (AUTO) 58.1 % (42-78); TOTAL CELLS COUNTED % (AUTO) 100 %; WHITE BLOOD COUNT 4.5 10^3/uL (4.0-10.5)
[2019-03-16 11:54] LABS: APPEARANCE,URINE SLIGHTLY-CLOUDY; BILIRUBIN,URINE NEGATIVE (NEGATIVE); COLOR,URINE YELLOW; GLUCOSE, URINE NEGATIVE (NEGATIVE); KETONES,URINE NEGATIVE (NEGATIVE); LEUKOCYTE ESTERASE,URINE NEGATIVE (NEGATIVE); NITRITE,URINE NEGATIVE (NEGATIVE); PROTEIN,URINE 30 mg/dL (NEGATIVE); URINE SPECIFIC GRAVITY 1.016
[2019-03-16 12:10] LABS: ALBUMIN 4.1 g/dL (3.5-5.0); ALKALINE PHOSPHATASE 60 U/L (38-126); ANION GAP 7 (5-19); ASPARTATE AMINO TRANSFERASE 40 U/L (14-36); BILIRUBIN,DIRECT 0.2 mg/dL (0.0-0.4); BILIRUBIN,TOTAL 0.8 mg/dL (0.2-1.3); BLOOD UREA NITROGEN 12 mg/dL (7-20); CALCIUM 9.3 mg/dL (8.4-10.2); CARBON DIOXIDE 29 mmol/L (22-30); CHLORIDE 104 mmol/L (98-107); GLUCOSE 100 mg/dL (75-110); POTASSIUM 4.6 mmol/L (3.6-5.0); TOTAL PROTEIN 7.4 g/dL (6.3-8.2)
--- NOTE | 2019-03-16 12:27 | RADIOLOGY REPORT (SQ) ---
EXAM DESCRIPTION: CHEST 2 VIEWS COMPLETED DATE/TIME: 03/16/2019 12:02 pm REASON FOR STUDY: dizziness COMPARISON: PA and lateral views of the chest from 04/10/2018. EXAM PARAMETERS: NUMBER OF VIEWS: two views TECHNIQUE: PA and lateral views of the chest were obtained. RADIATION DOSE: NA LIMITATIONS: none FINDINGS: LUNGS AND PLEURA: Left basilar atelectasis. There is no consolidation , pleural effusion or pneumothorax. MEDIASTINUM AND HILAR STRUCTURES: No mediastinal or hilar contour abnormality. HEART AND VASCULAR STRUCTURES: The cardiac silhouette and pulmonary vasculature are within normal shteh its. BONES: No acute findings. HARDWARE: None in the chest. OTHER: No other finding. IMPRESSION: No acute cardiopulmonary process. TECHNICAL DOCUMENTATION: JOB ID: [id number] [employer]- All Rights Reserved Reading location - IP/workstation name: [email or web address]
--- NOTE | 2019-03-16 13:45 | ER Document Report ---
ED General - General Chief Complaint: Dizziness Stated Complaint: DIZZINESS Time Seen by Provider: 03/16/19 11:00 Primary Care Provider: ZENY ONTIVEROS MD [NO LOCAL MD] - Follow up as needed Mode of Arrival: Ambulatory TRAVEL OUTSIDE OF THE [place] IN LAST 30 DAYS: No - HPI Notes: 63F h/o htn but hsn't followed up or taken her meds in months, but says in last few days really mostly in am when turning and getting up out of bed she experiences very transient feeling of the room spinning. does report some tinnitus on R ear at that time, that also doesn't persist long. no (near passing out).no MARI, vision changes, eye pain. no neck pain, or focal w eakness/clumsiness, speech changes. denies palpitations, chest pain dyspnea. no recent trauma or ear surgeries/infections other issues. - Related Data Allergies/Adverse Reactions: shellfish derived Allergy (Verified 03/16/19 13:25) Hives codeine [Codeine] Adverse Reaction (Verified 03/16/19 10:58) IODINE Allergy (Uncoded 03/16/19 10:58) Home Medications: pt reports she was prescribed bp meds but has not taken them since last year. Past Medical History - General Information source: Patient - Social History Smoking Status: Current Every Day Smoker Chew tobacco use (# tins/day): No Frequency of alcohol use: Occasional Family History: Reviewed & Not Pertinent, Other - asthma Patient has suicidal ideation: No Patient has homicidal ideation: No - Past Medical History Cardiac Medical History: Reports: Hx Hypertension Pulmonary Medical History: Reports: Hx Pneumonia Renal/ Medical History: Denies: Hx Peritoneal Dialysis Past Surgical History: Reports: Hx Hysterectomy, Hx Oral Surgery - Immunizations Immunizations up to date: Yes Hx Diphtheria, Pertussis, Tetanus Vaccination: Yes Review of Systems - Review of Systems Constitutional: No symptoms reported EENT: See HPI. denies: Eye pain, Eye discharge, Blurred vision, Tearing, Double vision, Ear pain, Ear discharge, Nose pain, Nose congestion, Nose discharge, Sinus pressure, Sinus discharge, Throat pain, Difficulty swallowing, Throat swelling, Mouth pain, Mouth swelling, Dental problem, Vertigo Cardiovascular: No symptoms reported Respiratory: No symptoms reported Gastrointestinal: No symptoms reported Genitourinary: No symptoms reported Female Genitourinary: No symptoms reported Musculoskeletal: No symptoms reported Skin: No symptoms reported Hematologic/Lymphatic: No symptoms reported Neurological/Psychological: No symptoms reported. denies: Sensory change, Weakness, Gait changes, Loss of power, Paralysis, Seizure, Speech impairment, Numbness, Tingling, Tremor Physical Exam - Vital signs Vitals: Temp Pulse Resp BP Pulse Ox 99.4 F 78 20 171/94 H 99 03/16/19 10:50 03/16/19 10:50 03/16/19 10:50 03/16/19 10:50 03/16/19 10:50 Interpretation: Normal - General General appearance: Appears well, Alert In distress: None - ambulatory in ED - HEENT Head: Normocephalic, Atraumatic Eyes: Normal. No: Pale conjunctiva, Periorbital ecchymosis, Periorbital edema, Scleral icterus Conjunctiva: No: Injected, Purulent discharge Extraocular movements intact: Yes - no resting or upon alex hallpike nystagmus Eyelashes: Normal Pupils: PERRL Visual hernandez normal: Yes Ears: Normal External canal: Normal Tympanic membrane: Normal, Other - Dill acharya pike when performed on R side reproducted sx vertigo for <1min no nystahgmus Hearing loss: No: Left, Right Sinus: Normal Nasal: Normal Mouth/Lips: Normal Mucous membranes: Moist Pharynx: Normal - Respiratory Respiratory status: No respiratory distress Chest status: Nontender Breath sounds: Normal Chest palpation: Normal - Cardiovascular Rhythm: Regular Heart sounds: Normal auscultation Murmur: No - Abdominal Inspection: Normal Distension: No distension Bowel sounds: Normal Tenderness: Nontender Organomegaly: No organomegaly - Back Back: Normal, Nontender - Extremities General upper extremity: Normal inspection, Nontender, Normal color, Normal ROM, Normal temperature General lower extremity: Normal inspection, Nontender, Normal color, Normal ROM, Normal temperature, Normal weight bearing. No: Steven's sign - Neurological Neuro grossly intact: Yes Cognition: Normal Orientation: AAOx4 Gays Coma Scale Eye Opening: Spontaneous Gays Coma Scale Verbal: Oriented Paulette Coma Scale Motor: Obeys Commands Paulette Coma Scale Total: 15 Speech: Normal Motor strength normal: LUE, RUE, LLE, RLE Sensory: Normal - Psychological Associated symptoms: Normal affect, Normal mood - Skin Skin Temperature: Warm Skin Moisture: Dry Skin Color: Normal Course - Re-evaluation Re-evalutation: pt cont to have no neuro deficits on exams while in ED and cont to deny any mari, cp. her renal functoin and other labs wnl. we discussed resuming seeign a PCP again ethan to re-evaluate need for smoking cessation and for need to possible restart meds. we discussed dire risks of BP left uncontrolled on bodies leading to cva, mi, pvd, disability. also discussed smoking leading to these things as well, she'd like to quit and will work w/ pcp on this. printed out steps for taylor graff to try at home and if sx persisted could use Rx meclizine today as directed. return for fever, neck pain severe mari, vision change or other concerns. - Vital Signs Vital signs: Temp Pulse Resp BP Pulse Ox 98.2 F 56 L 18 175/88 H 100 03/16/19 15:35 03/16/19 15:35 03/16/19 15:35 03/16/19 15:35 03/16/19 15:35 - Laboratory Result Diagrams: 03/16/19 11:30 03/16/19 11:30 Laboratory results interpreted by me: 03/16/19 03/16/19 03/16/19 11:19 11:30 11:30 MCV 105 H MCH 35.3 H Eos % (Auto) 7.1 H AST 40 H Urine Protein 30 H Urine Blood SMALL H Urine Urobilinogen 4.0 H Discharge - Discharge Clinical Impression: Peripheral vertigo involving left ear, Encounter for smoking cessation counseling, Non compliance w medication regimen Condition: Fair Disposition: HOME, SELF-CARE Additional Instructions: ED General - General Chief Complaint: Dizziness Stated Complaint: DIZZINESS Time Seen by Provider: 03/16/19 11:00 Primary Care Provider: ZENY ONTIVEROS MD [NO LOCAL MD] - Follow up as needed Mode of Arrival: Ambulatory TRAVEL OUTSIDE OF THE [place] IN LAST 30 DAYS: No - Related Data Allergies/Adverse Reactions: shellfish derived Allergy (Verified 03/16/19 13:25) Hives codeine [Codeine] Adverse Reaction (Verified 03/16/19 10:58) IODINE Allergy (Uncoded 03/16/19 10:58) Home Medications: pt reports she was prescribed bp meds but has not taken them since last year. Past Medical History - General Information source: Patient - Social History Smoking Status: Current Every Day Smoker Chew tobacco use (# tins/day): No Frequency of alcohol use: Occasional Family History: Reviewed & Not Pertinent, Other - asthma Patient has suicidal ideation: No Patient has homicidal ideation: No - Past Medical History Cardiac Medical History: Reports: Hx Hypertension Pulmonary Medical History: Reports: Hx Pneumonia Renal/ Medical History: Denies: Hx Peritoneal Dialysis Past Surgical History: Reports: Hx Hysterectomy, Hx Oral Surgery - Immunizations Immunizations up to date: Yes Hx Diphtheria, Pertussis, Tetanus Vaccination: Yes Physical Exam - Vital signs Vitals: Temp Pulse Resp BP Pulse Ox 99.4 F 78 20 171/94 H 99 03/16/19 10:50 03/16/19 10:50 03/16/19 10:50 03/16/19 10:50 03/16/19 10:50 Course - Vital Signs Vital signs: Temp Pulse Resp BP Pulse Ox 98.5 F 62 18 168/79 H 96 03/16/19 13:34 03/16/19 13:34 03/16/19 13:34 03/16/19 13:34 03/16/19 13:34 - Laboratory Result Diagrams: 03/16/19 11:30 03/16/19 11:30 Laboratory results interpreted by me: 03/16/19 03/16/19 03/16/19 11:19 11:30 11:30 MCV 105 H MCH 35.3 H Eos % (Auto) 7.1 H AST 40 H Urine Protein 30 H Urine Blood SMALL H Urine Urobilinogen 4.0 H Discharge - Discharge Clinical Impression: Peripheral vertigo involving left ear Condition: Fair Disposition: HOME, SELF-CARE Additional Instructions: Today in the emergency department your vital signs looked good and your EKG looks good. Your kidneys and all your other lab work looked good. Your chest x-ray was fine. On examination though you have evidence of vertigo symptoms from a left middle ear source. Many times there is no direct cause or event that can be found but it is thought that sometimes either some debris or change in the fluid of the middle ear can lead to this presentation. Therefore I am printing out some instructions for the Taylor maneuver which she can try at home and works sometimes. I am also prescribing a medicine called meclizine that you can take if your symptoms are continuing to bother you in the day with any head movements. Otherwise watch for any specific weakness or clumsiness in the arms or legs or trunk. Under neurologic exam today you do not have any problems with the cerebellar system. On your lab work you do not look dehydrated but I think you probably are on the borderline since her skin and tongue looks dry. Please make sure you are staying hydrated and eating well. Your blood pressures are high in the emergency department here, but you are not having signs of chest pain or headache or vision change to warrant any need for immediate lowering. watch for these, as I would want you to return if you do. I will refill your 25mg hydrochlorothiazide for 14d, but you must follow-up with your primary care doctor for the first available appointment for blood pressure assessment and management of this to prevent strokes heart attacks. Referrals: ZENY ONTIVEROS MD [NO LOCAL MD] - Follow up as needed Prescriptions: Meclizine HCl 25 mg PO Q8HP PRN #14 tab.chew PRN Reason: vertigo Hydrochlorothiazide [Hydrodiuril 25 mg Tablet] 25 mg PO QAM 14 Days #14 tablet Referrals: ZENY ONTIVEROS MD [NO LOCAL MD] - Follow up as needed
[2019-03-16 15:35] VITALS: BP 175/88
== END 2019-03-16 15:35 | disposition home or self-care (01) ==
LOC: ER 10:31
DX: R42 Dizziness and giddiness (principal); Z91.14 Patient's other noncompliance with medication regimen; I10 Essential (primary) hypertension; F17.200 Nicotine dependence, unspecified, uncomplicated
CPT/HCPCS: 36415; 71046; 80053; 81001; 84484; 85025; 93005; 93010; 99284